=== PATIENT | male | born 1985 | race Caucasian/White ===

== ENCOUNTER → 2018-01-01 | Outpatient (CLI) | payer OTHER ==
--- NOTE | 2018-01-01 09:16 | US ---
EXAMINATION TYPE: US venous doppler duplex LE RT DATE OF EXAM: 01/01/2018 9:02 AM COMPARISON: NONE CLINICAL HISTORY: Pain right leg M25.561. Pt states right leg pain x 2 days, no known prior DVT SIDE PERFORMED: Right TECHNIQUE: The lower extremity deep venous system is examined utilizing real time linear array sonog elsa with graded compression, doppler sonography and color-flow sonography. VESSELS IMAGED: External Iliac Vein (EIV) Common Femoral Vein Deep Femoral Vein Greater Saphenous Vein * Femoral Vein Popliteal Vein Small Saphenous Vein * Proximal Calf Veins (* superficial vessels) Grayscale, color doppler, spectral doppler imaging performed of the deep veins of the left right extr emity. There is normal flow, compressibility, vascular waveforms. Right Leg: Negative for DVT Results called to Carline at Dr's office at time of exam IMPRESSION: No sonographic evidence of deep venous thrombosis within the right lower extremity.
== END | disposition home or self-care (01) ==
LOC: RADUSWWP 08:40
PROVIDERS: ATTEND Family Medicine
DX: M25.561 Pain in right knee (principal)

== ENCOUNTER 2021-08-23 08:47 | Emergency (ER) | payer OTHER ==
[2021-08-23 08:54] VITALS: BP 159/95; PULSE 80; RESP 20; TEMP 98.5
[2021-08-23] MEDS ORDERED: PROPARACAINE 0.5% OPHTH DROPS 15 ML BTL BOTH EYES STA (09:06)
[2021-08-23] MEDS ORDERED: FLUORESCEIN STRIPS 1 MG STRIP BOTH EYES ONE (09:06)
[2021-08-23] MEDS ORDERED: ERYTHROMYCIN 5 MG/GM OPHTH OINT 1 GM TUBE RIGHT EYE STA (09:23)
[2021-08-23] MEDS ORDERED: DIPH,PERTUS(ACELL)TETVAC-LF 0.5 ML VIAL IM ONE (09:23)
--- NOTE | 2021-08-23 09:28 | ED ---
General Adult HPI - General Chief complaint: Eye Problems Stated complaint: [facility]-eye problem Time Seen by Provider: 08/23/21 09:06 Source: patient, RN notes reviewed Mode of arrival: ambulatory Limitations: no limitations - History of Present Illness Initial comments: 35-year-old male presents to the emergency room for right eye irritation. Patient states he was chipping away at frozen door yesterday when a piece hit his right eye. Patient states he thinks it is scratched. Patient went to go to work today his eye was bothering him and his work wanted him to be evaluated. He denies visual changes. Tetanus is not up-to-date.Patient has no other complaints at this time including shortness of breath, chest pain, abdominal pain, nausea or vomiting, headache, or visual changes. - Related Data Previous Rx's Medication Instructions Recorded Erythromycin Ophth Oint [Romycin 1 applic RIGHT EYE QID 7 Days #1 gm 08/23/21 Ophth Oint] Allergies Allergy/AdvReac Type Severity Reaction Status Date / Time No Known Allergies Allergy Verified 08/23/21 08:54 Review of Systems ROS Statement: Those systems with pertinent positive or pertinent negative responses have been documented in the HPI. ROS Other: All systems not noted in ROS Statement are negative. Past Medical History Past Medical History: No Reported History History of Any Multi-Drug Resistant Organisms: None Reported Past Surgical History: No Surgical Hx Reported Past Psychological History: No Psychological Hx Reported Smoking Status: Never smoker Past Alcohol Use History: None Reported, Occasional Past Drug Use History: None Reported General Exam Limitations: no limitations General appearance: alert, in no apparent distress Head exam: Present: atraumatic Eye exam: Present: PERRL, EOMI, conjunctival injection. Absent: scleral icterus, periorbital swelling, periorbital tenderness ENT exam: Present: normal exam, mucous membranes moist Neck exam: Present: normal inspection, full ROM. Absent: tenderness Respiratory exam: Present: normal lung sounds bilaterally. Absent: respiratory distress, wheezes Cardiovascular Exam: Present: regular rate, normal rhythm, normal heart sounds Course Vital Signs 08/23/21 08:52 Temperature 98.5 F Pulse Rate 80 Respiratory 20 Rate Blood Pressure 159/95 O2 Sat by Pulse 98 Oximetry Medical Decision Making - Medical Decision Making propairocane was used which completely alleviated patient's symptoms momentarily. Fluorescein stain and Wood's lamp was used and patient does have a small corneal abrasion noted at 12:00. Patient was given tetanus injection and started on erythromycin ointment. Given ophthalmology follow-up. Will return here for any worsening symptoms. Disposition Clinical Impression: Corneal abrasion, right Disposition: HOME SELF-CARE Condition: Good Instructions (If sedation given, give patient instructions): Corneal Abrasion (ED) Additional Instructions: Please apply ointment 4 times a day for 7 days. Follow-up with primary care or ophthalmology. Return to the emergency room for any worsening symptoms. Prescriptions: Erythromycin Ophth Oint [Romycin Ophth Oint] 1 applic RIGHT EYE QID 7 Days #1 gm Is patient prescribed a controlled substance at d/c from ED?: No Referrals: Omid Ortiz MD [STAFF PHYSICIAN] - 1-2 days Time of Disposition: 09:25
== END 2021-08-23 09:38 | disposition home or self-care (01) ==
LOC: EC 08:47
DX: S05.01XA Injury of conjunctiva and corneal abrasion without foreign body, right eye, initial encounter (principal); W22.8XXA Striking against or struck by other objects, initial encounter
CPT/HCPCS: 90471; 90715; 99283

== ENCOUNTER 2022-12-04 06:56 | Emergency (ER) | payer BC, OTHER ==
[2022-12-04 07:16] VITALS: RESP 18
[2022-12-04] MEDS ORDERED: LORATADINE 10 MG TAB PO STA (07:32)
[2022-12-04] MEDS ORDERED: predniSONE 50 MG TAB PO STA (07:32)
[2022-12-04 07:33] VITALS: BP 157/91; PULSE 68; TEMP 99.5
--- NOTE | 2022-12-04 07:37 | ED ---
General Adult HPI - General Chief complaint: Allergic Reaction Stated complaint: Face Swelling Time Seen by Provider: 12/04/22 07:16 Source: patient, family, RN notes reviewed Mode of arrival: ambulatory - History of Present Illness Initial comments: Patient is a pleasant 36-year-old male presenting to the emergency department for facial swelling. Onset of symptoms was yesterday, worse today. Patient took Benadryl without much improvement. No history of similar symptoms previously. Patient does not take any medications. Patient does work outside. Patient did get sunburned 5 days ago. Patient states her may be some minimal swelling of his right lower lip. No dyspnea. No swelling of the throat or tongue. No news exposures. - Related Data Previous Rx's Medication Instructions Recorded Erythromycin Ophth Oint [Romycin 1 applic RIGHT EYE QID 7 Days #1 gm 08/23/21 Ophth Oint] predniSONE [Deltasone] 20 mg PO BID #8 tab 12/04/22 Allergies Allergy/AdvReac Type Severity Reaction Status Date / Time No Known Allergies Allergy Verified 12/04/22 07:16 Review of Systems ROS Statement: Those systems with pertinent positive or pertinent negative responses have been documented in the HPI. ROS Other: All systems not noted in ROS Statement are negative. Constitutional: Denies: fever Eyes: Denies: eye pain ENT: Denies: ear pain Respiratory: Denies: cough Cardiovascular: Denies: chest pain Skin: Denies: rash Past Medical History Past Medical History: No Reported History History of Any Multi-Drug Resistant Organisms: None Reported Past Surgical History: No Surgical Hx Reported Past Psychological History: No Psychological Hx Reported Smoking Status: Never smoker Past Alcohol Use History: None Reported, Occasional Past Drug Use History: None Reported General Exam Limitations: no limitations General appearance: alert, in no apparent distress Head exam: Present: atraumatic Eye exam: Present: PERRL, EOMI, other (Bilateral periorbital edema). Absent: conjunctival injection ENT exam: Present: normal oropharynx, other (No angioedema of the uvula, pharynx, or tongue. Questionable trace swelling right lower lip) Neck exam: Present: normal inspection Respiratory exam: Present: normal lung sounds bilaterally Cardiovascular Exam: Present: regular rate, normal rhythm Extremities exam: Present: normal inspection Neurological exam: Present: alert Psychiatric exam: Present: normal affect, normal mood Skin exam: Present: normal color Course Vital Signs 12/04/22 12/04/22 07:14 07:27 Temperature 98 F 99.5 F Pulse Rate 70 68 Respiratory 18 18 Rate Blood Pressure 145/88 157/91 O2 Sat by Pulse 99 99 Oximetry Medical Decision Making - Medical Decision Making Was pt. sent in by a medical professional or institution (BRITT Ko, JAIL MANAGER, urgent care, hospital, or fci...) When possible be specific @ -No Did you speak to anyone other than the patient for history (EMS, parent, family, police, friend...)? What history was obtained from this source @ -No Did you review nursing and triage notes (agree or disagree)? Why? @ -I reviewed and agree with nursing and triage notes Were old charts reviewed (outside hosp., previous admission, EMS record, old EKG, old radiological studies, urgent care reports/EKG's, fci records)? Report findings @ -No old charts were reviewed Differential Diagnosis (chest pain, altered mental status, abdominal pain women, abdominal pain men, vaginal bleeding, weakness, fever, dyspnea, syncope, headache, dizziness, GI bleed, back pain, seizure, CVA, palpatations, mental health)? @ -not applicable EKG interpreted by me (3pts min.). @ -As above X-rays interpreted by me (1pt min.). @ -None done CT interpreted by me (1pt min.). @ -None done U/S interpreted by me (1pt. min.). @ -None done What testing was considered but not performed or refused? (CT, X-rays, U/S, labs)? Why? @ -None What meds were considered but not given or refused? Why? @ -None Did you discuss the management of the patient with other professionals (professionals i.e. BRITT Ko, JAIL MANAGER, lab, RT, psych nurse, social sciences professor, installation superintendent, teacher, program officer, bottle caser)? Give summary @ -No Was smoking cessation discussed for >3mins.? @ -No Was critical care preformed (if so, how long)? @ -No Were there social determinants of health that impacted care today? How? (H omelessness, low income, unemployed, alcoholism, drug addiction, transportation, low edu. Level, literacy, decrease access to med. care, care home, rehab)? @ -No Was there de-escalation of care discussed even if they declined (Discuss DNR or withdrawal of care, Hospice)? DNR status @ -No What co-morbidities impacted this encounter? (DM, HTN, Smoking, COPD, CAD, Cancer, CVA, ARF, Chemo, Hep., AIDS, mental health diagnosis, sleep apnea, morbid obesity)? @ -None Was patient admitted / discharged? Hospital course, mention meds given and route, prescriptions, significant lab abnormalities, going to OR and other pertinent info. @ -Patient does have evidence of recent sunburn. Edema is potentially related to this however is somewhat delayed from expected. Patient does not have any new known exposures. Patient will be started on a short course of steroids and also recommended [id number] antihistamines. Patient updated on warning signs of progression of angioedema or ALLERGIC reaction Undiagnosed new problem with uncertain prognosis? @ -No Drug Therapy requiring intensive monitoring for toxicity (Heparin, Nitro, Insulin, Cardizem)? @ -No Were any procedures done? @ -No Diagnosis/symptom? @ -Angioedema Acute, or Chronic, or Acute on Chronic? @ -Acute Uncomplicated (without systemic symptoms) or Complicated (systemic symptoms)? @ -default Side effects of treatment? @ -No Exacerbation, Progression, or Severe Exacerbation? @ -No Poses a threat to life or bodily function? How? (Chest pain, [place], [place], pneumonia, PE, COPD, DKA, ARF, appy, cholecystitis, CVA, Diverticulitis, Homicidal, Suicidal, threat to staff... and all critical care pts) @ -No Disposition Clinical Impression: Angioedema Disposition: HOME SELF-CARE Condition: Stable Instructions (If sedation given, give patient instructions): Angioedema (ED) Additional Instructions: Please follow-up with primary care physician in the next couple days for recheck. Prescription for steroids has been sent to pharmacy. Please use [id number] Claritin 10 mg daily until symptoms are completely resolved. Return for difficulty breathing, swelling of the throat or tongue or lips, worsening symptoms or any other concerns. Prescriptions: predniSONE [Deltasone] 20 mg PO BID #8 tab Is patient prescribed a controlled substance at d/c from ED?: No Referrals: None,Stated [Primary Care Provider] - 1-2 days Mitchell Waters MD [STAFF PHYSICIAN] - 1-2 days Time of Disposition: 07:37
== END 2022-12-04 07:47 | disposition home or self-care (01) ==
LOC: EC 06:56
DX: T78.3XXA Angioneurotic edema, initial encounter (principal)
CPT/HCPCS: 99283; J7512